=== PATIENT | male | born 1945 | race Caucasian/White ===

== ENCOUNTER → 2017-02-25 | Outpatient (CLI) | payer OTHER ==
[~2017-02-25] VITALS: Ht 170.2 cm; Wt 74.8 kg
[~2017-02-25] MED LIST: ACETAMINOPHEN-1 EAC1 PO; ASPIR 8181 MG PO; ASPIRIN325 PO; ATORVASTATIN CA40 MG PO; AUGMENTIN 875-1 EACH PO; AVAPRO 150 MG150 MG PO; CALCIUM 600 +1 EAC1 PO; CALCIUM-MAGNES1 EAC2 PO; CALCIUM-MAGNES1 EAC5 PO; DIOVAN; DIOVAN 80 MG TA80 M1 PO; FISH OIL 1,0001 EAC5 PO; HCTZ; LEVOTHYROXINE 0.15MG PO; LEVOTHYROXINE0.05 MG PO; LOTEMAX5 GM OPHTHALMIC; MAGNESIUM OXID400 MG PO; MOBIC15 MG PO; MULTI VITAMIN1 EACH PO; PERCOCET 10-321 EACH PO; PROTONIX40 M2 PO; VENTOLIN HFA INH8 GM INH; VITAMIN B-12500 MCG PO; VITAMIN E400 UNI3 PO; VYTORIN 10-401 EACH; VYTORIN 10-401 EACH PO; Vitamin D PO; Vitamin E PO; XARELTO10 MG PO
--- NOTE | ~2017-02-25 | P ---
[facility] [place] [address] PROCEDURE REPORT Name: JULI JOVEL Room #: REG [facility] Sola#: [id number] Admission: 02/25/17 Attend Phys: Erlin Stratton Discharge: Date of : 41 Report #: [id number] THIS REPORT FOR: //name// CC: Erlin Stafford MD DATE OF SERVICE: 02/25/2017 PROCEDURE PERFORMED: Upper endoscopy with biopsies. HISTORY OF PRESENT ILLNESS: The patient is a 71-year-old male who reportedly had weight loss following knee surgery, although he now reports his weight is stable. He was able to again this weight back, also with a history of mid epigastric abdominal pain, at that time was taking Meloxicam and aspirin and he also noted dark stools and possible history of anemia. He has held those medications, he does take a Protonix on a regular basis for reflux. He denies any dysphagia. Plan is for EGD and colonoscopy today. DESCRIPTION OF PROCEDURE: The risks and benefits of the procedure were explained to the patient, those risks including, but not limited to bleeding, perforation, the risk of sedation. He understood these risks and gave informed consent. Sedation was given using propofol per anesthesia. Next, using a standard Fujinon upper endoscope, the scope was placed in the patient's mouth and advanced under direct vision through the esophagus, stomach and into the second portion of the duodenum. The upper and mid esophagus were normal in appearance. In the distal esophagus just above the GE junction, two small pink tongues were noted approximately 1 cm. Biopsies were obtained to rule out Yip's esophagus. Overall, the gastric mucosa was normal. The pylorus was normal and patent. The duodenal bulb, first and second portion were all normal. There was no evidence of ulcerations or erosions. The scope was then withdrawn and the procedure terminated. The patient tolerated the procedure well. IMPRESSION: 1. 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 2. Otherwise, normal upper endoscopy. RECOMMENDATIONS: 1. Await biopsy results. 2. Continue PPI therapy. 3. We will proceed with colonoscopy next today. [facility] [address] [place] [address] PROCEDURE REPORT Name: JOVELJULI Room #: REG Dougie Selby#: [id number] Admission: 02/25/17 Attend Phys: Erlin Stratton Discharge: Date of : 41 Report #: [id number] Thank you for allowing me to participate in his care. By: 1213 1223 Erlin Nicholson MD /nt
--- NOTE | ~2017-02-25 | P ---
[facility] [place] [address] PROCEDURE REPORT Name: JULI JOVEL Room #: REG Dougie Sola#: [id number] Admission: 02/25/17 Attend Phys: Erlin Stratton Discharge: Date of : 41 Report #: [id number] THIS REPORT FOR: //name// CC: Erlin Stafford MD DATE OF SERVICE: 02/25/2017 PROCEDURE PERFORMED: Colonoscopy. HISTORY OF PRESENT ILLNESS: The patient is a 71-year-old male with a recent history of weight loss, possible anemia, dark stool, and abdominal pain. He now reports feeling much improved. He denies any obvious blood in his stools at this time. His weight has been stable. No family history of colon cancer. Upper endoscopy was just performed, which was essentially negative. PROCEDURE: The risks and benefits of the procedure were explained to the patient, those risks including, but not limited to bleeding, perforation, the risk of sedation. He understood these risks and gave informed consent. Sedation was given using propofol per anesthesia. Next, a digital rectal exam was initially performed, which was normal. Next, using a standard Matrimony.cominon colonoscope, the scope was placed in the patient's anus and advanced under direct vision to the cecum. The overall prep was excellent. The cecum and ileocecal valve were normal in appearance. Ascending, transverse, descending colon were normal. A few scattered diverticula were noted in the sigmoid colon, no evidence of inflammation, otherwise normal. The rectal mucosa was normal. On retroflexion, no abnormalities were noted. The scope was then withdrawn and the procedure terminated. The patient tolerated the procedure well. IMPRESSION: 1. Sigmoid diverticulosis. 2. Otherwise, normal colonoscopy. RECOMMENDATIONS: 1. Repeat colonoscopy in 10 years. 2. If patient remains anemic in the future consider Hemoccult testing. Thank you for allowing me to participate in his care. By: 1214 1234 Erlin Nicholson MD /nt
--- NOTE | ~2017-02-25 | S ---
[facility] [place] [address] SURGICAL PATH RPT PROCEDURE Name: ABDIEL MCNULTY Room #: REG [facility] PreciousLinda#: [id number] Admission: 02/25/17 Date of : 41 Discharge: Report #: [id number] Path Case #: [id number] PATHOLOGY REPORT COLLECTION DATE: 02/25/2017 RECEIVED DATE: 02/26/2017 SUBMITTING PHYS: Dr. Erlin Nicholson OTHER PHYS: Dr. Kristian Stafford SPECIMEN(S) RECEIVED: A.Bx of distal esophagus * * * * * * * * * * * * FINAL DIAGNOSIS: Gastroesophageal mucosa, distal esophagus, endoscopic biopsy: - Gastric-type mucosa with moderate chronic esophagitis. - Negative for intestinal metaplasia or dysplasia. - Squamous mucosa showing changes compatible with reflux and with increased intraepithelial eosinophils up to 20/hpf, please see comment. COMMENT: Examination of the esophageal biopsy tissue shows squamous mucosa with a marked number of intraepithelial eosinophils. Although eosinophils are commonly encountered in inflammation due to reflux esophagitis, the eosinophils in the present specimen are numerous, exceeding 20/hpf. Apart from reflux esophagitis, potential etiologies for the histologic pattern include allergic and collagen vascular diseases, fungal or parasitic infections, and eosinophilic esophagitis (idiopathic). Please correlate with clinical and endoscopic findings. (IUV:mgr; 02/27/2017) PATHOLOGIST: Erin Rider M.D. REPORT ELECTRONICALLY SIGNED BY: Erin Rider M.D. DATE/TIME: 02/27/2017 16:38 * * * * * * * * * * * * GROSS PATHOLOGY: Received in formalin labeled "Abdiel Mcnulty, BX of distal esophagus," are two segments of evans soft tissue measuring 0.6 x 0.3 x 0.3 cm in aggregate dimensions and ranging from 0.2 to 0.4 cm in maximum dimension. The specimen is submitted entirely in cassette A1. (TSD; 02/26/2017) [facility] [place] [address] SURGICAL PATH RPT PROCEDURE Name: ABDIEL MCNULTY Room #: REG [facility].#: [id number] Admission: 02/25/17 Date of : 41 Discharge: Report #: [id number] Path Case #: [id number] CLINICAL HISTORY: Pre-OP DX: Weight loss, anemia, abdominal pain Post-OP DX: Diverticulosis INITIAL CPT CODE(S): A; 43434 Professional services performed by [facility] [address] [facility] [place] [address] Technical services performed by [facility] at [address] [place] [address], [place] [address]. [facility] [address] [place] [address] PHONE: [phone] DIRECTOR: Ryan Wong M.D. * * * END OF REPORT * * *
== END | disposition home or self-care (01) ==
LOC: GI 09:45
DX: D64.9 Anemia, unspecified (principal); K57.30 Diverticulosis of large intestine without perforation or abscess without bleeding; K21.9 Gastro-esophageal reflux disease without esophagitis; Z87.891 Personal history of nicotine dependence; I10 Essential (primary) hypertension; E78.00 Pure hypercholesterolemia, unspecified; J44.9 Chronic obstructive pulmonary disease, unspecified; E03.9 Hypothyroidism, unspecified; Z98.890 Other specified postprocedural states
CPT/HCPCS: 62110; 62900

== ENCOUNTER → 2018-02-02 | Outpatient (CLI) | payer OTHER ==
[~2018-02-02] MED LIST changes: -LEVOTHYROXINE0.05 MG PO; +SYNTHROID50 MCG PO; +SYSTANE BALANCE10 ML OPHTHALMIC
== END ==
LOC: RAD 10:37
DX: J44.9 Chronic obstructive pulmonary disease, unspecified (principal); I10 Essential (primary) hypertension; E78.00 Pure hypercholesterolemia, unspecified; E03.9 Hypothyroidism, unspecified; Z87.891 Personal history of nicotine dependence

== ENCOUNTER → 2018-06-16 | Outpatient (CLI) | payer OTHER ==
[~2018-06-16] VITALS: Ht 175.3 cm; Wt 77.1 kg
--- NOTE | ~2018-06-16 | PATH ---
[facility] [place] [address] PATHOLOGY RPT PROCEDURE Name: ABDIEL MCNULTY MARGOT Room #: REG SANJU Calderon.#: [id number] Admission: 06/16/18 Date of : 41 Discharge: Report #: [id number] Path Case #: [id number] [facility] Accession Number: [id number] . 01 Material submitted: . BX OF ESOPHAGEAL ULCER R/O CMV, HERPES . 01 Clinical history: . Pre-op diagnosis: Dysphagia, history of EOE Post-op diagnosis: Hiatal hernia, esophageal ulcer R/O CMV, herpes . 02 Diagnosis: Esophagus "biopsy of esophageal ulcer": - Acute esophageal ulcer with necrotic acute inflammatory exudate. - There is no evidence of goblet cell metaplasia, dysplasia or malignancy. (SHA:chapincito; 06/18/2018) QMS/06/18/2018 . 02 Comment: Immunoperoxidase stains for CMV herpes 1 and 2, and GMS stain for fungus will be done and additional report will follow. (SHA:chapincito; 06/18/2018) . 02 Electronically signed: . Salvador Joseph MD, Pathologist NPI- [id number] . 01 Gross description: . The specimen is received in formalin, labeled "Abdiel Mcnulty, biopsy of esophageal ulcer, R/O CMV, herpes". Received are three segments of pale evans soft tissue measuring 0.3 cm each in maximum dimensions. The specimen is submitted entirely in cassette A1. (CAA; 06/17/2018) QAC/QAC . 02 Pathologist provided ICD-10: K22.10, K20.9 . 02 CPT . 981675 Specimen Comment: A courtesy copy of this report has been sent to Specimen Comment: [phone], . Specimen Comment: Report sent to / DR ECHEVARRIA Performed at: [address] [facility] [address], [place], [place] [id number] [place] [address] PATHOLOGY RPT PROCEDURE Name: FILOMENA MCNULTYLIE MARGOT Room #: REG CLDougie Selby#: [id number] Admission: 06/16/18 Date of : 41 Discharge: Report #: [id number] Path Case #: [id number] MD Yoel Serrano MD Phone: [phone] Performed at: [address] [id number] MD Erin Rider MD Phone: [phone]
--- NOTE | ~2018-06-16 | P ---
[facility] [place] [address] PROCEDURE REPORT Name: JULI JOVEL [facility] [id number] Admission: 06/16/18 Attend Phys: Erlin Stratton Discharge: Date of : 41 Report #: [id number] THIS REPORT FOR: //name// CC: Erlin Stafford MD DATE OF SERVICE: 06/16/2018 PROCEDURE PERFORMED: Upper endoscopy with biopsies. HISTORY OF PRESENT ILLNESS: The patient is a 73-year-old male with a previous history of upper endoscopy by myself on 02/25/2017. At that time, he had weight loss, midepigastric abdominal pain. Biopsies were obtained for a possible short segment Yip's esophagus. However, biopsies were negative for Yip's, but they were positive, however, for eosinophilic esophagitis. The patient now reports significant dysphagia and was seen in the office in followup on 06/08/2018. He has a history of gastroesophageal reflux and has been currently taking Protonix on a daily basis. Plan is for repeat upper endoscopy. DESCRIPTION OF PROCEDURE: The risks and benefits of the procedure were explained to the patient, those risks including but not limited to bleeding, perforation, the risk of sedation. He understood these risks and gave informed consent. Sedation was given using propofol per anesthesia. Next, using a standard Olympus upper endoscope, the scope was placed in the patient's mouth and advanced under direct vision through the esophagus, stomach and into the second portion of the duodenum. The larynx and the upper esophagus were normal in appearance; however, in the mid to distal esophagus, a large single linear ulceration was noted. It was approximately 7 cm in length and at its widest portion was approximately 2 cm in width. Several biopsies were obtained. It did cause some narrowing in the mid to distal esophagus. The GE junction appeared fairly normal. Overall, the gastric mucosa was normal. The pylorus was normal and patent. The duodenal bulb, first and second portion were all normal. The scope was then withdrawn and the procedure terminated. The patient tolerated the procedure well. IMPRESSION: 1. Large linear esophageal ulcer as described above. I did not proceed with dilation due to the ulcer. Biopsies were obtained to rule out cytomegalovirus and herpes. 2. Otherwise, normal upper endoscopy. RECOMMENDATIONS: 1. Await biopsy results. 2. We will increase Protonix to b.i.d. 3. We will add Carafate liquid 4 times a day. [address] [address] PROCEDURE REPORT Name: JULI JOVEL [facility] #: [facility] [id number] Admission: 06/16/18 Attend Phys: Erlin Stratton Discharge: Date of : 43 Report #: [id number] 4. Advised the patient to have soft food at this time and chews food thoroughly. We will recommend repeat upper endoscopy in approximately 6-8 weeks' time. Thank you for allowing me to participate in his care. By: 1017 1415 Erlin Nicholson MD /nt
== END | disposition home or self-care (01) ==
LOC: GI 07:23
DX: K22.10 Ulcer of esophagus without bleeding (principal); K21.0 Gastro-esophageal reflux disease with esophagitis; J43.9 Emphysema, unspecified; I10 Essential (primary) hypertension; E78.5 Hyperlipidemia, unspecified; E78.00 Pure hypercholesterolemia, unspecified; E03.9 Hypothyroidism, unspecified; Z98.890 Other specified postprocedural states; Z79.899 Other long term (current) drug therapy; Z87.891 Personal history of nicotine dependence; Z96.653 Presence of artificial knee joint, bilateral; Z95.5 Presence of coronary angioplasty implant and graft; Z88.8 Allergy status to other drugs, medicaments and biological substances; Z79.82 Long term (current) use of aspirin
CPT/HCPCS: 62110; 62900

== ENCOUNTER → 2018-07-28 | Outpatient (CLI) | payer OTHER ==
[~2018-07-28] VITALS: Ht 172.7 cm; Wt 77.1 kg
[~2018-07-28] MED LIST changes: +CARAFATE 1 GM TA1 G1 PO; +HYDROCHLOROTH12.5 M1 PO
--- NOTE | ~2018-07-28 | P ---
[facility] [place] [address] PROCEDURE REPORT Name: JULI JOVEL Room #: REG EVELINDougie Selby#: [id number] Admission: 07/28/18 Attend Phys: Erlin Stratton Discharge: Date of : 41 Report #: [id number] THIS REPORT FOR: //name// CC: Erlin Stafford MD DATE OF SERVICE: 07/28/2018 PROCEDURE PERFORMED: Upper endoscopy with biopsies and esophageal dilation. HISTORY OF PRESENT ILLNESS: The patient is a 73-year-old male with a history of dysphagia and gastroesophageal reflux disease, underwent an upper endoscopy by myself on 06/16/2018, was noted to have a large linear ulcer in the mid to distal esophagus. Biopsies were negative for dysplasia or malignancy, also negative for CMV and herpes as well as Julissa. The patient has a known history of eosinophilic esophagitis noted on upper endoscopy in 2017. He had already been taking Protonix once a day at the time of the last endoscopy; therefore, increased it to b.i.d. and added Carafate. He does reports still having some dysphagia, but improvement in his symptoms. Plan is for repeat upper endoscopy today. DESCRIPTION OF PROCEDURE: The risks and benefits of the procedure were explained to the patient, those risks including but not limited to bleeding, perforation and the risk of sedation. He understood these risks and gave informed consent. Sedation was given using propofol per Anesthesia. Next, using a standard Olympus upper endoscope, the scope was placed in the patient's mouth and advanced under direct vision through the esophagus, stomach and into the second portion of the duodenum. The larynx was normal in appearance. The upper and mid esophagus was normal. In the distal esophagus, the previous large linear ulceration has almost completely healed, there remains a small area of just a few millimeters, no evidence of bleeding, grade A esophagitis was noted, possible short segment of Yip's was noted. Biopsies were obtained. There was a mild narrowing at the GE junction as well. Upon entering the stomach, a small hiatal hernia was again noted. Overall, the gastric mucosa was normal. The pylorus was normal and patent. The duodenal bulb, first and second portion were all normal. The scope was then brought back up into the patient's stomach and a Savary guidewire was inserted through the scope, leaving the guidewire in place as the scope was then withdrawn. Next, a 42 Swedish Savary dilation was then performed of the esophagus without difficulty. The wire and dilator removed. The scope was reintroduced into the patient's stomach. A small mucosal tear was noted at the GE junction. No further dilation was performed. No significant bleeding was noted. At this point, the scope was then withdrawn and the procedure terminated. The patient tolerated the procedure well. IMPRESSION: [facility] [address] [place] [address] PROCEDURE REPORT Name: BECKAJULIMECCA FROST Room #: REG Dougie Selby#: [id number] Admission: 07/28/18 Attend Phys: Erlin Stratton Discharge: Date of : 41 Report #: [id number] 1. Grade A erosive esophagitis. 2. Previous large linear ulceration is almost completely healed as described above. 3. Possible short segment of Yip's. 4. Narrowing at the gastroesophageal junction. 5. Status post biopsies and dilation. RECOMMENDATIONS: 1. Await biopsy results. 2. Observe the patient post-dilation. 3. Would recommend continuing b.i.d. PPI therapy and Carafate long-term. Thank you for allowing me to participate in his care. By: 1010 1304 Erlin Nicholson MD /nt
--- NOTE | 2018-07-29 16:06 | PATH ---
[facility] [address] [place] [address] PATHOLOGY RPT PROCEDURE Name: ABDIEL MCNULTY Room #: REG SANJU Kvng.#: [id number] Admission: 07/28/18 Date of : 41 Discharge: Report #: [id number] Path Case #: [id number] [facility] Accession Number: [id number] . 01 Material submitted: . BX DISTAL ESOPHAGUS R/O BARRETTS . 01 Clinical history: . Pre-OP DX: Ulcer, dysphagia Post-OP DX: Hiatal hernia, esophagitis, gastritis, dysphagia, Hx ulcers . 02 Diagnosis: Gastric cardia-type mucosa, distal esophagus rule out Yip's, endoscopic biopsy: - Moderate chronic inflammation. - Negative for intestinal metaplasia or dysplasia. (IUV:pit 07/29/2018) QTP/07/29/2018 . 02 Electronically signed: . Erin Rider MD, Pathologist NPI- [id number] . 01 Gross description: . Received in formalin labeled "Abdiel Mcnulty, BX distal esophagus, rule out Yip's," are 2 segments of evans soft tissue measuring 0.7 x 0.2 x 0.2 cm in aggregate dimensions and ranging from 0.3 to 0.4 cm in maximum dimension. The specimen is submitted entirely in cassette A1. (TSD; 07/28/2018) TOB/TOB . 02 Pathologist provided ICD-10: K20.9 . 02 CPT . 860116 Specimen Comment: A courtesy copy of this report has been sent to Specimen Comment: [phone], . Specimen Comment: Report sent to / DR ECHEVARRIA Performed at: [address], [place] [id number] MD Yoel Serrano MD Phone: [phone] Performed at: [address] [id number] MD Erin Rider MD Phone: [phone]
== END | disposition home or self-care (01) ==
LOC: GI 07:54
DX: K29.50 Unspecified chronic gastritis without bleeding (principal); R13.10 Dysphagia, unspecified; K21.9 Gastro-esophageal reflux disease without esophagitis; K20.9 Esophagitis, unspecified; K22.70 Barrett's esophagus without dysplasia; K44.9 Diaphragmatic hernia without obstruction or gangrene; K31.89 Other diseases of stomach and duodenum; J43.9 Emphysema, unspecified; I10 Essential (primary) hypertension; E78.5 Hyperlipidemia, unspecified; E03.9 Hypothyroidism, unspecified; Z88.8 Allergy status to other drugs, medicaments and biological substances; Z79.82 Long term (current) use of aspirin; Z79.899 Other long term (current) drug therapy; Z87.891 Personal history of nicotine dependence; Z95.5 Presence of coronary angioplasty implant and graft; Z96.653 Presence of artificial knee joint, bilateral
CPT/HCPCS: 62110; 62900

== ENCOUNTER → 2019-02-22 | Outpatient (CLI) | payer OTHER | LOC: RAD 14:15 | DX: J44.9 Chronic obstructive pulmonary disease, unspecified (principal) ==

== ENCOUNTER → 2019-12-13 | Outpatient (CLI) | payer OTHER | LOC: SJCVCIMAG 08:48 | PROVIDERS: ATTEND Internal Medicine | DX: I65.23 Occlusion and stenosis of bilateral carotid arteries (principal); I44.0 Atrioventricular block, first degree; R00.1 Bradycardia, unspecified; I25.10 Atherosclerotic heart disease of native coronary artery without angina pectoris; E78.5 Hyperlipidemia, unspecified; I10 Essential (primary) hypertension; J44.9 Chronic obstructive pulmonary disease, unspecified; K21.9 Gastro-esophageal reflux disease without esophagitis; Z79.899 Other long term (current) drug therapy; Z87.891 Personal history of nicotine dependence ==

== ENCOUNTER → 2020-02-21 | Outpatient (CLI) | payer OTHER | LOC: RAD 11:17 | PROVIDERS: ATTEND Internal Medicine | DX: J44.9 Chronic obstructive pulmonary disease, unspecified (principal); M47.899 Other spondylosis, site unspecified ==

== ENCOUNTER → 2020-06-14 | Outpatient (CLI) | payer OTHER | LOC: SJCVC 11:07 | PROVIDERS: ATTEND Internal Medicine | DX: I44.0 Atrioventricular block, first degree (principal); I25.10 Atherosclerotic heart disease of native coronary artery without angina pectoris; I10 Essential (primary) hypertension; E78.5 Hyperlipidemia, unspecified; I65.23 Occlusion and stenosis of bilateral carotid arteries; G89.29 Other chronic pain; J44.9 Chronic obstructive pulmonary disease, unspecified; Z79.82 Long term (current) use of aspirin; Z79.899 Other long term (current) drug therapy ==

== ENCOUNTER → 2020-11-29 | Outpatient (CLI) | payer OTHER | LOC: SJCVCIMAG 07:50 | PROVIDERS: ATTEND Internal Medicine | DX: I08.8 Other rheumatic multiple valve diseases (principal); R00.1 Bradycardia, unspecified; I49.3 Ventricular premature depolarization; I44.0 Atrioventricular block, first degree; I65.23 Occlusion and stenosis of bilateral carotid arteries; I25.10 Atherosclerotic heart disease of native coronary artery without angina pectoris; I10 Essential (primary) hypertension; E78.5 Hyperlipidemia, unspecified; K21.9 Gastro-esophageal reflux disease without esophagitis; K44.9 Diaphragmatic hernia without obstruction or gangrene; E07.89 Other specified disorders of thyroid; G89.29 Other chronic pain; Z79.82 Long term (current) use of aspirin; Z79.899 Other long term (current) drug therapy; Z87.891 Personal history of nicotine dependence; Z72.89 Other problems related to lifestyle; Z98.61 Coronary angioplasty status ==

== ENCOUNTER → 2020-12-20 | Outpatient (CLI) | payer OTHER | LOC: RAD 14:03 | PROVIDERS: ATTEND Family Medicine | DX: J43.9 Emphysema, unspecified (principal); M25.78 Osteophyte, vertebrae; M25.59 Pain in other specified joint; J61 Pneumoconiosis due to asbestos and other mineral fibers ==

== ENCOUNTER → 2021-01-03 | Outpatient (CLI) | payer OTHER | LOC: CAT 10:49 | PROVIDERS: ATTEND Family Medicine | DX: M43.28 Fusion of spine, sacral and sacrococcygeal region (principal); M46.1 Sacroiliitis, not elsewhere classified; M77.8 Other enthesopathies, not elsewhere classified; M47.816 Spondylosis without myelopathy or radiculopathy, lumbar region; K57.30 Diverticulosis of large intestine without perforation or abscess without bleeding ==

== ENCOUNTER → 2021-05-01 | Outpatient (CLI) | payer OTHER ==
[~2021-05-01] VITALS: Ht 170.2 cm; Wt 77.1 kg
[~2021-05-01] MED LIST changes: +ST. JOSEPH ASPI81 M1 PO; +TURMERIC500 M2 PO
--- NOTE | 2021-05-02 13:46 | P ---
[facility] [place] [address] PROCEDURE REPORT Name: JULI JOVEL Room #: REG SANJU Sola#: [id number] Admission: 05/01/21 Attend Phys: Erlin Stratton Discharge: Date of : 41 Report #: [id number] THIS REPORT FOR: cc: Kristian Stafford MD, Neal A. MD McElhinney, Christian C. MD ~ cc: Kristian Stafford MD DATE OF SERVICE: 05/01/2021 PROCEDURE PERFORMED: Upper endoscopy with esophageal dilation. HISTORY OF PRESENT ILLNESS: The patient is a 75-year-old male with a history of gastroesophageal reflux disease and previous history of esophageal stricture and recurrent dysphagia. Last upper endoscopy approximately 2 years ago with dilation was helpful. At that time, we used a Savary 42. The patient has been on b.i.d. PPI therapy and Carafate twice a day. DESCRIPTION OF PROCEDURE: The risks and benefits of the procedure were explained to the patient, those risks including but not limited to bleeding, perforation and the risk of sedation. He understood these risks and gave informed consent. Sedation was given using propofol per Anesthesia. Next, using a standard Olympus upper endoscope, the scope was placed in the patient's mouth and advanced under direct vision through the esophagus, stomach and into the second portion of the duodenum. The larynx was normal in appearance. The upper and mid esophagus was normal. In the distal esophagus, there was a mild narrowing near the GE junction. Otherwise, the GE junction was normal. No evidence of esophagitis or Yip's. Upon entering the stomach, a small hiatal hernia was noted. Overall, the gastric mucosa was normal. The pylorus was normal and patent. The duodenal bulb, first and second portion were all normal. The scope was then brought back up into the patient's stomach and a Savary guidewire was inserted through the scope, leaving the wire in place as the scope was then withdrawn. Next, a 45 followed by a 48-Luxembourger Savary dilation was performed without difficulty. There was a small mucosal tear. After 48 dilation, no further dilations were performed. The scope was then withdrawn and the procedure terminated. The patient tolerated the procedure well. IMPRESSION: 1. Mild narrowing distal esophagus, status post dilation. 2. Small hiatal hernia. 3. Otherwise, normal upper endoscopy. RECOMMENDATIONS: 1. Observe the patient post dilation. 2. Continue PPI therapy and Carafate. [address] [address] PROCEDURE REPORT Name: JULI JOVEL [facility]: [facility] [id number] Admission: 05/01/21 Attend Phys: Erlin Stratton Discharge: Date of : 41 Report #: [id number] Thank you for allowing me to participate in his care. <ELECTRONICALLY SIGNED> By: Erlin Nicholson MD 05/02/21 1346 [id number] 1641 Erlin Nicholson, /shelia
== END | disposition home or self-care (01) ==
LOC: GI 09:06
PROVIDERS: ATTEND Specialist
DX: K21.9 Gastro-esophageal reflux disease without esophagitis (principal); K22.2 Esophageal obstruction; K44.9 Diaphragmatic hernia without obstruction or gangrene; I10 Essential (primary) hypertension; E78.5 Hyperlipidemia, unspecified; E03.9 Hypothyroidism, unspecified; J43.9 Emphysema, unspecified; Z98.890 Other specified postprocedural states; Z79.899 Other long term (current) drug therapy; Z96.653 Presence of artificial knee joint, bilateral; Z87.891 Personal history of nicotine dependence; Z88.8 Allergy status to other drugs, medicaments and biological substances
CPT/HCPCS: 62110; 62900

== ENCOUNTER → 2021-05-31 | Outpatient (CLI) | payer OTHER | LOC: SJCVC 09:45 | PROVIDERS: ATTEND Internal Medicine | DX: I44.0 Atrioventricular block, first degree (principal); R94.31 Abnormal electrocardiogram [ECG] [EKG]; R00.1 Bradycardia, unspecified; I25.10 Atherosclerotic heart disease of native coronary artery without angina pectoris; I10 Essential (primary) hypertension; E78.5 Hyperlipidemia, unspecified; I65.23 Occlusion and stenosis of bilateral carotid arteries; J44.9 Chronic obstructive pulmonary disease, unspecified; G89.29 Other chronic pain; K21.9 Gastro-esophageal reflux disease without esophagitis; Z98.890 Other specified postprocedural states; Z87.891 Personal history of nicotine dependence; Z72.89 Other problems related to lifestyle; Z79.82 Long term (current) use of aspirin; Z79.899 Other long term (current) drug therapy ==